=== PATIENT | female | born 1950 | race Caucasian/White ===

== ENCOUNTER 2023-08-10 10:15 | Day surgery (SDC) | payer OTHER, MEDICARE ==
[2023-08-04 10:13] VITALS: BMI 41.5
[2023-08-10 12:59] VITALS: PULSE 66; RESP 16; TEMP 97.1
[2023-08-10 13:30] VITALS: BP 127/56
== END 2023-08-10 13:25 | disposition home or self-care (01) ==
LOC: FASU-ENDO 10:15
PROVIDERS: ATTEND Internal Medicine Gastroenterology
PROC: 0DJD8ZZ Inspection of Lower Intestinal Tract, Via Natural or Artificial Opening Endoscopic (ICD-10-PCS; principal; 2023-08-10 12:17)
DX: Z12.11 Encounter for screening for malignant neoplasm of colon (principal); Z85.038 Personal history of other malignant neoplasm of large intestine; K57.30 Diverticulosis of large intestine without perforation or abscess without bleeding; Z98.0 Intestinal bypass and anastomosis status